=== PATIENT | female | born 1970 | race Hispanic/Latino ===

== ENCOUNTER → 2025-03-16 | Day surgery (SDC) | payer BC ==
[2025-03-13 08:32] LABS: ANION GAP 14.1 mmol/L (8-16); CALCIUM 9.5 mg/dL (8.4-10.2); CREATININE, SERUM 0.78 mg/dL (0.57-1.11); POTASSIUM 4.1 mmol/L (3.5-5.1)
[~2025-03-16] MED LIST: ACETAMINOPHEN 1000 MG/100 ML 100 ML IV ONE; ARAVA20 MG PO; FAMOTIDINE 20 MG/2 ML VIAL IV ONE; FAMOTIDINE20 MG PO; FENTANYL CITRATE/PF 100MCG/2 ML INJ ONE; FOLIC ACID0.4 MG PO; GABAPENTIN300 MG PO; HYDROXYCHLOROQ200 MG PO; LEVOTHYROXINE50 MCG PO; LIDOCAINE HCL 2% LOCAL INJ 5 ML SDV VIAL INJ ONE; METFORMIN HCL500 MG PO; MIDAZOLAM HCL 2 MG/2 ML VIAL ONE; ONDANSETRON HCL INJ 2MG/ML 2ML 2 MG/ML VIAL ONE; ORENCIA125 MG/1 M SC; PANTOPRAZOLE SO40 MG PO; PRAVASTATIN SOD40 MG PO; PROPOFOL IV EMULSION 10 MG/ML 20 ML VIAL ONE; SEVOFLURANE INHAL SOLN 250 ML PEN BTL ONE; TRANEXAMIC ACI650 MG PO; ZESTRIL10 MG PO
[2025-03-16] MEDS: LACTATED RINGER'S 1,000 ML ONE (06:37)
[2025-03-16 07:32] VITALS: TEMP 98.5
[2025-03-16] MEDS: FENTANYL CITRATE/PF 100MCG/2 ML INJ ONE (07:47)
[2025-03-16] MEDS: ACETAMINOPHEN/CODEINE 300MG - 30MG TAB ONE (08:00)
[2025-03-16 08:35] VITALS: BP 129/76; PULSE 62; RESP 16; O2SAT 99
== END | disposition home or self-care (01) ==
LOC: OR 05:08
PROVIDERS: ATTEND Specialist
DX: G56.02 Carpal tunnel syndrome, left upper limb (principal); M65.332 Trigger finger, left middle finger; I10 Essential (primary) hypertension; E78.5 Hyperlipidemia, unspecified; E11.9 Type 2 diabetes mellitus without complications; Z79.84 Long term (current) use of oral hypoglycemic drugs; E03.9 Hypothyroidism, unspecified; E66.9 Obesity, unspecified; Z68.38 Body mass index [BMI] 38.0-38.9, adult; Z98.84 Bariatric surgery status; Z01.812 Encounter for preprocedural laboratory examination; Z01.810 Encounter for preprocedural cardiovascular examination; Z79.899 Other long term (current) drug therapy
CPT/HCPCS: 26055; 29848; 36415 ×2; 80048; 82948; 93005; J0131; J0690; J2003; J2250; J2405; J2704; J3010; J7121; J1308